=== PATIENT | female | born 1990 | race Two or more races ===

== ENCOUNTER 2024-10-03 14:43 | Outpatient (CLI) | payer OTHER ==
[~2024-10-03 14:43] MED LIST: LAMICTAL100 MG
== END 2024-10-03 14:50 | disposition home or self-care (01) ==
LOC: PRENATAL 14:43
PROVIDERS: ATTEND Obstetrics & Gynecology Maternal & Fetal Medicine
DX: O44.00 Complete placenta previa NOS or without hemorrhage, unspecified trimester (principal); O09.519 Supervision of elderly primigravida, unspecified trimester; Z14.8 Genetic carrier of other disease; Z3A.20 20 weeks gestation of pregnancy

== ENCOUNTER 2025-01-02 10:41 | Outpatient (CLI) | payer OTHER | END 2025-01-02 10:42 | disposition home or self-care (01) | LOC: PRENATAL 10:41 | PROVIDERS: ATTEND Obstetrics & Gynecology Maternal & Fetal Medicine | DX: O26.849 Uterine size-date discrepancy, unspecified trimester (principal); O36.8199 Decreased fetal movements, unspecified trimester, other fetus; O09.519 Supervision of elderly primigravida, unspecified trimester; Z14.8 Genetic carrier of other disease; Z3A.32 32 weeks gestation of pregnancy ==